=== PATIENT | male | born 1950 | race Caucasian/White ===

== ENCOUNTER 2023-07-28 09:07 | Day surgery (SDC) | payer OTHER ==
[~2023-07-28] VITALS: Ht 175.3 cm; Wt 90.0 kg
[2023-07-28] VITALS (15 sets, daily range): BP systolic 106–188; BP diastolic 61–137
[~2023-07-28 09:07] MED LIST: AMLO5 PO; ARTIFICIAL TEA1 EAC6 BOTHEYES; ATOR40TA PO; Aspir 8181 MG PO; LIDO700A20 TOP; OMEP20ER PO; SILD50TA; TICA90TA PO
--- NOTE | 2023-07-28 11:46 | NUR ---
PT RETURNED TO RECOVERY ROOM IN [facility]. RIGHT RADIAL TR BAND SITE SOFT NON-TENDER WITH NO HEMATOMA, NO PULSATILE BLEEDING AND RIGHT WRIST BOARD IN PLACE. PT DENIES CHEST PAIN. CALL LIGHT IN REACH PT DRINKING JUICE AND EATING SNACK.
--- NOTE | 2023-07-28 12:36 | NUR ---
NO CHANGES TO RIGHT RADIAL TR BAND SITE.
--- NOTE | 2023-07-28 13:04 | NUR ---
NO CHANGES TO R RAD TR BAND SITE; STILL SOFT NON-TENDER WITH NO HEMATOMA, NO PULSATILE BLEEDING AND RIGHT WRIST BOARD IN PLACE. PT WATCHING TV. CALL LIGHT IN REACH.
--- NOTE | 2023-07-28 14:45 | NUR ---
TR BAND FULLY DEFLATED. NO HEMATOMA OR NEW BLEEDING NOTED. PT AND SPOUSE VERBALIZE D/C INSTRUCTIONS.
--- NOTE | 2023-07-28 15:30 | NUR ---
PT DRESSED, DEMONSTRATES CORRECT R RADIAL PRECAUTIONS. NO NEW BLEEDING AT R RADIAL SITE, BAND REMOVED, PRESSURE HELD TO SMALL HEMATOMA WHICH DISIPATED. DOT CLOTH DRESSING PLACED, IV D/C CATHETER INTACT. PT AND SPOUSE VERBALIZE D/C INSTRUCTIONS. SLING PLACED ON R ARM PER REQUEST. PT WHEELED OUT TO SPOUSE TO DRIVE HOME.
== END 2023-07-28 15:30 | disposition home or self-care (01) ==
LOC: MHTC 09:07
DX: I25.10 Atherosclerotic heart disease of native coronary artery without angina pectoris (principal); R07.89 Other chest pain; I44.0 Atrioventricular block, first degree; I10 Essential (primary) hypertension; Z95.5 Presence of coronary angioplasty implant and graft; Z79.82 Long term (current) use of aspirin; Z79.899 Other long term (current) drug therapy
CPT/HCPCS: 76937; 85347; 93454; 99152; 99153; A9270; C1725; C1769; C1874; C1877; C1894; C9600; J1644; J2250; J3010; J7030; J7050; Q9967

== ENCOUNTER 2024-04-06 05:51 | Day surgery (SDC) | payer OTHER ==
[2024-04-06] VITALS (14 sets, daily range): BP systolic 107–146; BP diastolic 58–94
[~2024-04-06] VITALS: Ht 175.3 cm; Wt 85.9 kg
[~2024-04-06 05:51] MED LIST changes: +AMLO10 PO; -AMLO5 PO; +Isosorbide Mono30 MG PO; +METO25ER PO; +RANO500T PO
[2024-04-06] MEDS ORDERED: Verapamil HCL 2.5 MG/ML 2ML Injection ONE (06:17)
[2024-04-06] MEDS ORDERED: NS 1,000 ML IV ONE ×2 (06:17→06:54)
[2024-04-06] MEDS ORDERED: NS 250 ML IV ONE (06:17)
[2024-04-06] MEDS ORDERED: Heparin Sodium 1000 Units/ML 10ML MDV ONE (06:17)
[2024-04-06] MEDS ORDERED: Nitroglycerin 2 MG/20 ML BTL ONE (06:17)
[2024-04-06] MEDS ORDERED: FentaNYL Citrate 50 MCG/ML 2 ML Injection ONE (06:53)
[2024-04-06] MEDS ORDERED: Midazolam HCl 1MG / ML 2ML Vial ONE (06:54)
--- NOTE | 2024-04-06 08:11 | NUR ---
PT RETURNED TO RECOVERY ROOM IN [facility]. RIGHT RADIAL TR BAND SITE SOFT NON-TENDER WITH NO HEMATOMA, NO PULSATILE BLEEDING AND WRIST BOARD IN PLACE. PT DENIES CHEST PAIN. CALL LIGHT IN REACH. PT'S SO IN ROOM.
--- NOTE | 2024-04-06 09:53 | NUR ---
8 CC OF AIR REMOVED OUT OF NOW DEFLATED RIGHT TR BAND OVER 10 MIN; R RAD TR BAND SITE SOFT NON-TENDER WITH NO HEMATOMA, NO PULSATILE BLEEDING. DISCHARGE INSTRUCTIONS REVIEWED ALL QUESTIONS ANSWERED.
--- NOTE | 2024-04-06 10:09 | NUR ---
NO CHANGES TO R RAD DEFLATED TR BAND.
--- NOTE | 2024-04-06 10:21 | NUR ---
DEFLATED RIGHT TR BAND REMOVED AND POLYMEM PLACED OVER RIGHT RAD SITE AND R WRIST BOARD IN PLACE. R RAD SITE STILL SOFT NON-TENDER WITH NO HEMATOMA, NO PULSATILE BLEEDING. LEFT AC 20 G IV DISCONTINUED FROM LEFT AC WITH INTACT CANNULA.
--- NOTE | 2024-04-06 10:41 | NUR ---
WHILE PT WAS GETTING DRESSED RIGHT RADIAL SITE STARTED ARTERIAL BLEEDING. MANUAL PRESSURE WAS HELD TO R RAD SITE TO OBTAIN HEMOSTASIS WITH DIXON PATCH. R RAD SITE STABLE WITH DIXON PATCH AND CLEAR DRESSING IN PLACE WITH NO HEMATOMA,NO PULSATILE BLEEDING. CALL LIGHT IN REACH.
--- NOTE | 2024-04-06 10:51 | NUR ---
NO CHANGES TO R RAD SITE. PT STATES HE "IS DOING FINE."
--- NOTE | 2024-04-06 10:59 | NUR ---
PT'S SO IN ROOM.
--- NOTE | 2024-04-06 11:26 | NUR ---
NO CHANGES TO R RAD SITE. PT DRINKING ORANGE JUICE.
--- NOTE | 2024-04-06 12:09 | NUR ---
NO CHANGES TO R RAD SITE. RIGHT WRIST BOARD IN PLACE. PT ESCORTED OUT VIA WHEELCHAIR ESCORT. DISCHARGE INSTRUCTIONS REVIEWED WITH PT'S SO.
== END 2024-04-06 13:08 | disposition home or self-care (01) ==
LOC: MHTC 05:51
DX: I25.118 Atherosclerotic heart disease of native coronary artery with other forms of angina pectoris (principal); Z79.82 Long term (current) use of aspirin; Z79.899 Other long term (current) drug therapy
CPT/HCPCS: 76937; 93454; 99152; C1769; C1894; J1644; J2250; J3010; J7030; J7050; Q9967